=== PATIENT | male | born 1950 | race Caucasian/White ===

== ENCOUNTER 2020-07-31 07:52 | Day surgery (SDC) | payer MEDICARE, SELFPAY ==
[2020-07-30 14:07] VITALS: BMI 32.8
--- NOTE | 2020-07-30 14:25 | HO.ANESPROP2 ---
Documented by User: Hanane Ruiz 07/30/20 14:26 HPI - Anesthesia Eval Consult details Narrative: 70yo M for Colonoscopy FOR[facility]LY [facility] Past Medical History Medical History GERD (gastroesophageal reflux disease) History of periodontal disease HTN (hypertension) Sacroiliitis Surgical History Surgical History H/O wisdom tooth extraction Hx of colonoscopy Social History Social History Are you a primary animal care supervisor to a significant other at home: No Do you presently have visiting nurse or other home services: No Smoking Status: Never smoker Second Hand Smoke Exposure: No Use of substances other than those prescribed or required for medical reasons: No Have you been hit, kicked, punched, or otherwise hurt by someone within the past year? If so, by whom?: No Advance Directives: No Advance Directives Information Provided: No Advance Directives on File: No Meds Allergies Allergy/AdvReac Type Severity Reaction Status Date / Time penicillin V Allergy Unknown Verified 09/27/14 00:00 Penicillins [PCN] Allergy Unknown UNKNOWN Unverified 06/14/20 15:22 Home Medications Medication Instructions Recorded Confirmed Type Advil 07/27/20 07/27/20 History Vitamin C 07/27/20 History Vitamin D3 07/27/20 History alfuzosin 1 tab PO BEDTIME 07/27/20 07/27/20 History iron 07/27/20 History lisinopril-hydrochlorothiazide 1 tab PO DAILY 07/27/20 07/31/20 History omeprazole 1 cap PO DAILY 07/27/20 07/27/20 History Exam Exam Date and Time: July 30, 2020 1425 Height,Weight and Vital Signs: Height 6 ft Weight 109.769 kg Assessment and Plan Assessment Anesthesia Assessment: Chart Reviewed Documented by User: Ebony Geller 07/31/20 09:55 [facility] Past Medical History Medical History GERD (gastroesophageal reflux disease) History of periodontal disease HTN (hypertension) Sacroiliitis Surgical History Surgical History H/O wisdom tooth extraction Hx of colonoscopy Social History Social History Are you a primary animal care supervisor to a significant other at home: No Do you presently have visiting nurse or other home services: No Smoking Status: Never smoker Second Hand Smoke Exposure: No Use of substances other than those prescribed or required for medical reasons: No Have you been hit, kicked, punched, or otherwise hurt by someone within the past year? If so, by whom?: No Advance Directives: No Advance Directives Information Provided: No Advance Directives on File: No Meds Allergies Allergy/AdvReac Type Severity Reaction Status Date / Time penicillin V Allergy Unknown Verified 09/27/14 00:00 Penicillins [PCN] Allergy Unknown UNKNOWN Unverified 06/14/20 15:22 Home Medications Medication Instructions Recorded Confirmed Type Advil 07/27/20 07/27/20 History Vitamin C 07/27/20 History Vitamin D3 07/27/20 History alfuzosin 1 tab PO BEDTIME 07/27/20 07/27/20 History iron 07/27/20 History lisinopril-hydrochlorothiazide 1 tab PO DAILY 07/27/20 07/31/20 History omeprazole 1 cap PO DAILY 07/27/20 07/27/20 History Exam Airway Mallampati Class: II TM Dist: >3cm Neck ROM: Full Heart: RRR Lungs: CTA Assessment and Plan Assessment Anesthesia Assessment: Anesthesia Plan Discussed and Chart Reviewed Final Anesthetic Review NPO: Yes ASA Class: II Final Preanesthetic Review: Meds/Allgs Chart Reviewed, Consent Obtained/Reviewed and Anes Risks/Benef Reviewed Patient Risk: Low Procedure Risk: Low Anesthetic Plan Anesthetic Plan: MAC: Disposition: Standard PACU
[2020-07-31 08:20] VITALS: BP 147/87; PULSE 80; RESP 18; TEMP 36.8; O2SAT 97
[2020-07-31] MEDS: Lactated Ringers 1,000 ML 100 ML IVCONT (08:37)
--- NOTE | 2020-07-31 09:48 | MHC.SHP ---
Pre-Procedural Eval Section B Chief Complaint: SCREENING Details of Present Illness: screening Relevant Family History (Specify if Yes): No Relevant Social History: None Present Medications: see Short Stay Collaborative assessment Medical History: Significant History (see H&P no changes) History of Previous Operations: No relevant previous surgery Allergies: Allergies Allergy/AdvReac Type Severity Reaction Status Date / Time penicillin V Allergy Unknown Verified 09/27/14 00:00 Penicillins [PCN] Allergy Unknown UNKNOWN Unverified 06/14/20 15:22 Review of Systems Sugical H&P ROS: Negative: Constitution, Cardiovascular, Respiratory, Neurological, Psychiatric, Hem-Onc, Allergic/Immunologic, Gastrointestinal, Genitourinary, Musculoskeletal, Integumentary, Endocrine and Eyes/Ears/Nose/Throat Exam Surgical H&P Exam: Normal: HEENT, Normal: Heart, Normal: Lungs, Normal: Extremities, Normal: Abdomen, Normal: Skin and Normal: Neurological Plan Diagnosis/Plan: Unchanged Patient has been examined and remains a candidate for the planned procedure
[2020-07-31 09:56] VITALS: BP 147/87; PULSE 80; RESP 18; TEMP 36.8; O2SAT 97
[2020-07-31 10:30] VITALS: BP 121/79; PULSE 83; RESP 16; TEMP 37; O2SAT 97
--- NOTE | 2020-07-31 10:36 | PM.OP ---
Brief Operative Note Date of procedure: 07/31/20 Pre-op diagnosis: screening Post-op diagnosis: other (colon polyp) Procedure: colonoscopy Surgeon: Glenn Hopson Estimated blood loss (mL): 5 Pathology: other (polyps cecum and 55 cm) Condition: stable Disposition: PACU
[2020-07-31 10:47] VITALS: BP 123/81; PULSE 71; RESP 14; TEMP 37; O2SAT 96
--- NOTE | 2020-07-31 10:55 | OP_ITS ---
SURGEON: Glenn Hopson MD INDICATIONS: Colon cancer screening and prior history of adenomatous colon polyps. PREOPERATIVE DIAGNOSIS: POSTOPERATIVE DIAGNOSIS: PROCEDURE PERFORMED: Colonoscopy to the terminal ileum with biopsy and snare polypectomy. ESTIMATED BLOOD LOSS: COMPLICATIONS: ANESTHESIA: ASSISTANTS: SPECIMENS: MEDICATIONS: Monitored anesthesia care. DESCRIPTION OF PROCEDURE: History and physical performed. The risks and benefits of the procedure were explained to the patient. Informed consent was obtained. The patient was placed in the left lateral decubitus position. A digital rectal exam was performed and was found to be normal. The Olympus pediatric video colonoscope was introduced into the rectum and advanced to the cecum without difficulty. The cecum was identified by transillumination, palpation, and identification of ileocecal valve. Examination was performed and the scope was removed. He tolerated the procedure well and was taken to recovery area in stable condition. FINDINGS: The terminal ileum was examined and appeared normal. The visualized colonic mucosa was normal. The quality of prep was fair with some liquid stool coating the mucosa, this was washed and suctioned. In the cecum, was a less than 5 mm sessile polyp. This was removed with biopsy forceps. At 55 cm, was a 6 mm polyp, which was removed with a snare and recovered via suction. No other polyps were identified. There was mild sigmoid diverticulosis. Retroflexed examination was normal. IMPRESSION: Colon polyps. RECOMMENDATION: Follow up the biopsy results. MD LORI Koroma/SHALA / [id number]
--- NOTE | 2020-07-31 11:13 | HO.POSTANES ---
Post Anesthesia Evaluation Post Anesthesia Evaluation Vital Signs: Vital Signs Temp Pulse Resp BP Pulse Ox 07/31/20 10:47 98.6 F 71 14 123/81 96 07/31/20 10:30 98.6 F 83 16 121/79 97 07/31/20 09:56 98.2 F 80 18 147/87 H 97 07/31/20 08:20 98.2 F 80 18 147/87 H 97 Anesthesia: Monitored Mental Status: Awake Pain Control: Satisfactory Nausea/Vomiting: None Hydration: Adequate Anesthesia-Related Issues: No Anes. Related Issues
== END 2020-07-31 23:59 | disposition home or self-care (01) ==
PROVIDERS: PCP Nurse Practitioner Adult Health; Visit Provider Internal Medicine Gastroenterology
PROC: 0DJD8ZZ Inspection of Lower Intestinal Tract, Via Natural or Artificial Opening Endoscopic (ICD-10-PCS; CPT 45378; principal; 2020-07-31 09:20)
DX: Z12.11 Encounter for screening for malignant neoplasm of colon (principal); Z86.010 Personal history of colon polyps; D12.0 Benign neoplasm of cecum; K63.5 Polyp of colon; K57.30 Diverticulosis of large intestine without perforation or abscess without bleeding; I10 Essential (primary) hypertension; K21.9 Gastro-esophageal reflux disease without esophagitis; M46.1 Sacroiliitis, not elsewhere classified; Z79.899 Other long term (current) drug therapy; Z79.1 Long term (current) use of non-steroidal anti-inflammatories (NSAID); Z88.0 Allergy status to penicillin
CPT/HCPCS: 45385; 45380; 88305